=== PATIENT | male | born 1995 | race Caucasian/White ===

== ENCOUNTER 2024-01-07 08:36 | Emergency (ER) | payer MEDICARE, MEDICAID ==
[~2024-01-07] VITALS: Ht 175.3 cm; Wt 75.0 kg
[2024-01-07] MEDS ORDERED: HYDR50CA7 PO (09:00)
[2024-01-07] MEDS ORDERED: FLUO40CA PO (09:00)
[2024-01-07] MEDS ORDERED: OLAN10TA74 PO (09:00)
[2024-01-07] MEDS ORDERED: DESM0.2T29 PO (09:00)
[2024-01-07] MEDS ORDERED: ALPR1TAB7 PO (09:00)
[2024-01-07] MEDS ORDERED: FLUO-418 PO (09:00)
[2024-01-07] MEDS ORDERED: TRAZ-257 PO (09:00)
[2024-01-07] MEDS ORDERED: FERR325T27 PO (09:00)
[2024-01-07] MEDS ORDERED: THIA100T80 PO (09:00)
[2024-01-07] MEDS ORDERED: LITH300C3 PO (09:00)
[2024-01-07] MEDS ORDERED: CHOL100062 PO (09:00)
[2024-01-07] MEDS ORDERED: LEVE10006 PO (09:00)
[2024-01-07] MEDS ORDERED: OLAN20TA82 PO (09:00)
[2024-01-07] MEDS: DiphenhydrAMINE HCL 50 MG/ML VIAL IM ONE ×2 (10:02→15:41)
[2024-01-07] MEDS: LORazepam 2 MG/ML VIAL IM ONE ×2 (10:02→15:40)
[2024-01-07] MEDS: HALOPERIDOL LACTATE 5 MG/ML VIAL IM ONE ×2 (10:02→15:40)
[2024-01-07] MEDS: ZOLPIDEM TARTRATE 10 MG TABLET PO PRN (19:58)
[2024-01-07] MEDS: HALOPERIDOL 5 MG TABLET PO PRN (19:58)
[2024-01-07] MEDS: LORazepam 2 MG TABLET PO PRN (19:58)
[2024-01-07 20:29] LABS: APPEARANCE,URINE CLEAR (CLEAR); BILIRUBIN,URINE NEGATIVE (NEGATIVE); COLOR,URINE LIGHT YELLOW (YELLOW); GLUCOSE, URINE (UA) NEGATIVE (NEGATIVE); KETONES,URINE NEGATIVE (NEGATIVE); LEUKOCYTE ESTERASE ,URINE NEGATIVE (NEGATIVE); NITRATE,URINE NEGATIVE (NEGATIVE); OCCULT BLOOD,URINE NEGATIVE (NEGATIVE); PH,URINE 6.5 (5.0-8.0); PROTEIN,URINE NEGATIVE (NEGATIVE); SPECIFIC GRAVITIY, URINE 1.014 (1.003-1.030); UROBILINOGEN,URINE <=1.0 mg/dL (<=1.0)
[2024-01-07 21:56] LABS: COVID AG,FIA SOURCE NASAL SWAB
[2024-01-07 22:13] LABS: SARS-COV2 (COVID) ANTIGEN,FIA Negative (Negative)
[2024-01-07 22:21] LABS: BASOPHILS % (AUTO) 0.4 % (0.0-2.0); EOSINOPHILS % (AUTO) 0.1 % (1.0-6.0); LYMPHOCYTES # (AUTO) 1.6 K/uL (1.0-4.8); MONOCYTES # (AUTO) 0.8 K/uL (0.1-1.0); NEUTROPHILS % (AUTO) 65.8 % (40.0-70.0)
[2024-01-07 22:23] LABS: HEMOGLOBIN 14.1 g/dL (13.5-17.5); MEAN CORPUSCULAR HEMOGLOBIN 28.8 pg (26.0-34.0); MEAN CORPUSCULAR HGB CONC 32.8 G/dL (31.0-37.0); MEAN CORPUSCULAR VOLUME 88 fL (80-100); MONOCYTES % (AUTO) 11.7 % (2.0-9.0); NEUTROPHILS # (AUTO) 4.7 K/uL (1.8-7.7); PLATELET COUNT (AUTO) 218 K/uL (150-450); WHITE BLOOD COUNT (AUTO) 7.1 K/uL (4.5-11.0)
[2024-01-07 22:28] LABS: ANION GAP 3 mmol/L (8-16); CALCIUM, TOTAL 9.4 mg/dL (8.8-10.5); CARBON DIOXIDE 32 mmol/L (22-29); CHLORIDE 108 mmol/L (98-107); CREATININE 0.72 mg/dL (0.60-1.30); GLOMERULAR FILTR. RATE CALC > 60 mL/min (>60); GLUCOSE,RANDOM 86 mg/dL (70-110); POTASSIUM 4.4 mmol/L (3.5-5.1); SODIUM SERUM 142 mmol/L (136-145); UREA NITROGEN, BLOOD 12 mg/dL (7-18)
[2024-01-08 05:34] LABS: CHOL/HDL RATIO 1.9 (4.2-7.3)
[2024-01-08 05:54] LABS: LITHIUM 0.29 mmol/L (0.60-1.20)
[2024-01-08 05:59] LABS: HEMOGLOBIN A1C 4.4 % (3.8-5.6)
[2024-01-08] MEDS: LevETIRAcetam 500 MG TABLET PO SCH (08:58)
[2024-01-08 09:26] LABS: GLUCOMETER DEV NAME(LOC) ERT.6; GLUCOSE,POINT OF CARE 72 MG/DL (70-110)
[2024-01-08] MEDS: QUEtiapine FUMARATE 100 MG TABLET PO ONE ×2 (14:49→22:18)
[2024-01-08] MEDS: ALPRAZolam 1 MG TABLET PO ONE (14:49)
[2024-01-08] MEDS: HydrOXYzine PAMOATE 50 MG CAPSULE PO ONE ×2 (14:49→22:18)
[2024-01-08] MEDS: ALPRAZolam 0.5 MG TABLET PO ONE (22:19)
[2024-01-08] MEDS ORDERED: HydrOXYzine PAMOATE 50 MG CAPSULE PO PRN (22:45)
[2024-01-08] MEDS ORDERED: QUEtiapine FUMARATE 100 MG TABLET PO PRN (22:45)
[2024-01-09] MEDS: ALPRAZolam 1 MG TABLET PO PRN (10:01)
[2024-01-09 11:43] LABS: PH,URINE DRUG SCREEN 6.5 (5.0-8.0)
[2024-01-09 11:49] LABS: ALCOHOL, URINE DRUG SCREEN NEGATIVE (NEGATIVE); AMPHET/METH SCREEN,URINE NEGATIVE (NEGATIVE); BARBITURATE SCREEN, URINE NEGATIVE (NEGATIVE); BENZODIAZEPINES SCREEN,URINE POSITIVE (NEGATIVE); CANNABINOID SCREEN,URINE NEGATIVE (NEGATIVE); COCAINE SCREEN,URINE NEGATIVE (NEGATIVE); METHADONE SCREEN, URINE NEGATIVE (NEGATIVE); OPIATE SCREEN,URINE NEGATIVE (NEGATIVE); PHENCYCLIDINE SCREEN,URINE NEGATIVE (NEGATIVE)
[2024-01-10 07:40] VITALS: BP 118/74; PULSE 95; RESP 16; TEMP 98.8; O2SAT 98
== END 2024-01-10 18:20 | disposition home or self-care (01) ==
LOC: EMS 08:40 → CANBEDREQ 01-10 14:31 → EMS 01-10 18:20
DX: F25.1 Schizoaffective disorder, depressive type (principal); F79 Unspecified intellectual disabilities; F84.0 Autistic disorder; Z78.1 Physical restraint status; Z20.822 Contact with and (suspected) exposure to COVID-19
CPT/HCPCS: 99291; 87426; 80061; 80048; 80178; 81003; 82962; 83036; 85025; 36415; 80307; 96372; J1200; J1630; J2060; 99285